=== PATIENT | male | born 1945 | race Caucasian/White ===

== ENCOUNTER 2018-02-05 09:41 | Observation (INO) | payer MEDICARE ==
[2018-02-05] MEDS ORDERED: Albuterol/Ipratropium 3.0-0.5 MG/3 ML Neb Soln INH PRN (10:01)
[2018-02-05] MEDS ORDERED: Morphine 2 MG/ML Syringe IVPUSH PRN (10:01)
[2018-02-05] MEDS ORDERED: Sodium Chloride 0.9% 10 ML Syringe FLUSH PRN (10:01)
[2018-02-05] MEDS ORDERED: Nitroglycerin 0.4 MG Tab.SL SL PRN (12:50)
[2018-02-05] MEDS ORDERED: Digoxin 250 MCG Tab PO SCH (13:00)
[2018-02-05] MEDS: GLIPIZIDE 10 MG PO SCH (15:34)
[2018-02-05] MEDS: Aspirin 81 MG Tab.EC *PTOM PO SCH (15:34)
[2018-02-05] MEDS: Levothyroxine 150 MCG Tab *PTOM PO SCH (15:35)
[2018-02-05] MEDS ORDERED: WARFARIN 5 MG PO SCH (16:00)
[2018-02-05] MEDS: metFORMIN 1,000 MG Tab *PTOM PO SCH (19:14)
[2018-02-05] MEDS ORDERED: atorvaSTATin 20 MG Tab *PTOM PO SCH (21:00)
[2018-02-05] MEDS ORDERED: EZETIMIBE PO SCH (21:00)
[2018-02-05] MEDS ORDERED: SIMVASTATIN PO SCH (21:00)
[2018-02-05] MEDS ORDERED: rOPINIRole 1 MG Tab *PTOM PO SCH (21:00)
--- NOTE | 2018-02-05 21:01 | PCM.HP ---
H&P History of Present Illness - General Date of Service: 02/05/18 Admit Problem/Dx: Admission Diagnosis/Problem Admission Diagnosis/Problem Chest pain Source of Information: Patient - History of Present Illness Initial Comments - Free Text/Narative: 73-year-old male brought in because of chest tightness. He complains of on and of chest tightness for week but this morning had skipping of heartbeat and he saw Annika Gutierrez at the clinic. I discussion with the sales clerk supervisor ensued, was it was decided that the patient should be admitted for observation. The chest tightness described si like "an elephant sitting" on his chest. There is no fever cough no shortness of breath. Has Type 2 diabetes,stable asbestosis, stable and paroxysmal atrial fibrillation on Coumadin that is stable. - Related Data Allergies/Adverse Reactions: Allergies Allergy/AdvReac Type Severity Reaction Status Date / Time latex Allergy Burning Verified 05/05/16 09:01 Home Medications: Home Meds Aspirin [Adult Low Dose Aspirin EC] 81 mg PO DAILY 02/22/15 [History] Digoxin [Lanoxin] 250 mcg PO DAILY 02/22/15 [History] Ezetimibe/Simvastatin [Vytorin 10-20 MG] 1 each PO BEDTIME 02/22/15 [History] FLUoxetine HCl [Prozac] 20 mg PO DAILY 02/22/15 [History] Fenofibrate [Lofibra] 160 mg PO DAILY 02/22/15 [History] Insulin Detemir [Levemir] 45 unit SQ BID 02/22/15 [History] Levothyroxine 150 mcg PO DAILY 02/22/15 [History] metFORMIN [Glucophage] 1,000 mg PO BIDMEALS 02/22/15 [History] Metoprolol Tartrate [Lopressor] 12.5 mg PO DAILY 05/02/16 [History] Nitroglycerin [Nitrostat] 0.4 mg SL ASDIRECTED PRN 05/02/16 [History] Warfarin Sodium [Jantoven] 5 mg PO SUTUWETHSA 05/02/16 [History] atorvaSTATin [Lipitor] 20 mg PO BEDTIME 05/02/16 [History] Lisinopril/Hydrochlorothiazide [Lisinopril-Hctz 20-25 mg Tab] 1 each PO DAILY [History] Warfarin [Coumadin] 7.5 mg PO MOFR 02/05/18 [History] glipiZIDE [Glucotrol] 10 mg PO ACBREAKFAST 02/05/18 [History] rOPINIRole [Requip] 2 mg PO BEDTIME 02/05/18 [History] Past Medical History HEENT History: Reports: Cataract, Other (See Below) Other HEENT History: right eye Cardiovascular History: Reports: Afib, CAD, High Cholesterol, Hypertension Respiratory History: Reports: COPD, Other (See Below) Other Respiratory History: ASBESTIOSIS Other Musculoskeletal History: CARPAL TUNNEL SYNDROME Psychiatric History: Reports: None Endocrine/Metabolic History: Reports: Diabetes, Type II, Hypothyroidism Other Endocrine/Metabolic History: Thyroid surgery Oncologic (Cancer) History: Reports: Thyroid Other Oncologic History: BENIGN PANCREATIC TUMOR - Infectious Disease History Infectious Disease History: Reports: Chicken Pox, Measles, Mumps, Shingles - Past Surgical History HEENT Surgical History: Reports: Other (See Below) Other HEENT Surgeries/Procedures: [place] teeth GI Surgical History: Reports: Colonoscopy Musculoskeletal Surgical History: Reports: None Social & Family History - Family History Family Medical History: Noncontributory - Tobacco Use Smoking Status *Q: Former Smoker Years of Tobacco use: 25 Used Tobacco, but Quit: Yes Month/Year Tobacco Last Used: 1979 Second Hand Smoke Exposure: No - Caffeine Use Caffeine Use: Reports: Coffee, Soda Other Caffeine Use: Coffee 4 cups. soda-6 pack - Alcohol Use Days Per Week of Alcohol Use: 0 - Recreational Drug Use Recreational Drug Use: No H&P Review of Systems - Review of Systems: Review Of Systems: ROS reveals no pertinent complaints other than HPI. Exam - Exam Exam: See Below - Vital Signs Vital Signs: Last Vital Signs Temp 98.0 F 02/05/18 20:00 Pulse 70 02/05/18 20:00 Resp 17 02/05/18 20:00 BP 141/68 H 02/05/18 20:00 Pulse Ox 93 L 02/05/18 20:00 Weight: 106.594 kg - Exam General: Alert, Oriented, 4 HEENT: PERRLA, Hearing Intact, Mucosa Moist & Pump Back, Nares Patent, Normal Nasal Septum, Posterior Pharynx Clear, Conjunctiva Clear, EOMI, EACs Clear, TMs Clear Neck: Supple, Trachea Midline, 2 Lungs: Clear to Auscultation, Normal Respiratory Effort Cardiovascular: Regular Rate, Regular Rhythm GI/Abdominal Exam: Normal Bowel Sounds, Soft, Non-Tender, No Organomegaly, No Distention, No Abnormal Bruit, No Mass, Pelvis Stable (Male) Exam: Deferred Rectal (Males) Exam: Deferred Back Exam: Normal Inspection, Full Range of Motion, NT Extremities: Normal Inspection, Normal Range of Motion, Non-Tender, No Pedal Edema, Normal Capillary Refill Skin: Warm, Dry, Intact Neurological: Cranial Nerves Intact, Reflexes Equal Bilateral Neuro Extensive - Mental Status: Alert, Oriented x3, Normal Mood/Affect, Normal Cognition Neuro Extensive - Motor, Sensory, Reflexes: CN II-XII Intact, Normal Gait, Normal Reflexes Psychiatric: Alert, Normal Affect, Normal Mood - Patient Data Lab Results Last 24 hrs: Laboratory Results - last 24 hr 02/05/18 02/05/18 02/05/18 Range/Units 10:22 17:53 18:00 POC Glucose 171 H 163 H (80-116) mg/dL Troponin I < 0.017 L (<0.017-0.056) ng/mL Result Diagrams: 02/06/18 05:55 02/06/18 05:55 EKG INTERPRETATION EKG Date: 02/05/18 [place]: Normal - Problem List (1) Paroxysmal atrial fibrillation SNOMED Code(s): 221704298 ICD Code: I48.0 - PAROXYSMAL ATRIAL FIBRILLATION Status: Acute Current Visit: Yes (2) Chest tightness SNOMED Code(s): 92262381 ICD Code: R07.89 - OTHER CHEST PAIN Status: Acute Current Visit: Yes (3) Diabetes type 2, controlled SNOMED Code(s): 26136480 ICD Code: E11.9 - TYPE 2 DIABETES MELLITUS WITHOUT COMPLICATIONS Status: Acute Current Visit: Yes (4) HTN (hypertension) SNOMED Code(s): 48994084 ICD Code: I10 - ESSENTIAL (PRIMARY) HYPERTENSION Status: Acute Current Visit: Yes (5) HLD (hyperlipidemia) SNOMED Code(s): 00744557 ICD Code: E78.5 - HYPERLIPIDEMIA, UNSPECIFIED Status: Acute Current Visit : Yes (6) Chronic back pain SNOMED Code(s): 911444390 ICD Code: M54.9 - DORSALGIA, UNSPECIFIED; G89.29 - OTHER CHRONIC PAIN Status: Acute Current Visit: Yes (7) Asbestosis SNOMED Code(s): 32718188 ICD Code: J61 - PNEUMOCONIOSIS DUE TO ASBESTOS AND OTHER MINERAL FIBERS Status: Acute Current Visit: Yes Problem List Initiated/Reviewed/Updated: Yes Orders Last 24hrs: Active Orders 24 hr Category Date Time Status Patient Status [ADT] Routine ADT 02/05/18 10:01 Active Accu Check [Blood Glucose Check, Bedside] [RC] 07,12,17 Care 02/05/18 10:06 Active EKG Documentation Completion [RC] 1800,0511 Care 02/05/18 10:04 Active Height and Weight [RC] 07 Care 02/05/18 10:01 Active Intake and Output [RC] 06,14,22 Care 02/05/18 10:02 Active Oxygen Therapy [RC] PRN Care 02/05/18 10:01 Active RT Aerosol Therapy [RC] ASDIRECTED Care 02/05/18 10:04 Active Up ad Kathy [RC] ASDIRECTED Care 02/05/18 10:01 Active VTE/DVT Education [RC] Per Unit Routine Care 02/05/18 10:01 Active Vital Signs [RC] Q4H Care 02/05/18 10:01 Active Consistent Carbohydrate Diet [DIET] Diet 02/05/18 Breakfast Active CBC WITH AUTO DIFF [HEME] AM Lab 02/06/18 05:11 Ordered COMPREHENSIVE METABOLIC PN,CMP [CHEM] AM Lab 02/06/18 05:11 Ordered TROPONIN I [CHEM] AM Lab 02/06/18 05:11 Ordered Albuterol/Ipratropium [DuoNeb 3.0-0.5 MG/3 ML] Med 02/05/18 10:01 Active 3 ml INH ONETIME PRN Aspirin [Halfprin] Med 02/05/18 14:30 Active 81 mg PO DAILY FLUoxetine [PROzac] Med 02/06/18 09:00 Active 20 mg PO DAILY Hydrochlorothiazide/Lisinopril [Lisinopril-HCTZ 20-25 Med 02/06/18 09:00 Active MG] 1 tab PO DAILY Insulin Detemir [Levemir] Med 02/05/18 21:00 Active 45 unit SQ BID Levothyroxine Med 02/05/18 14:30 Active 150 mcg PO ACBREAKFAST Metoprolol Tartrate [Lopressor] Med 02/06/18 09:00 Pending 12.5 mg PO DAILY Morphine Med 02/05/18 10:01 Active 2 mg IVPUSH Q2H PRN Nitroglycerin [Nitrostat] Med 02/05/18 12:50 Active 0.4 mg SL ASDIRECTED PRN Sodium Chloride 0.9% [Saline Flush] Med 02/05/18 10:01 Active 10 ml FLUSH ASDIRECTED PRN Warfarin [Coumadin] Med 02/06/18 16:00 Active 5 mg PO SuTuWeThSa Warfarin [Coumadin] Med 02/05/18 16:00 Active 7.5 mg PO MoFr@1600 atorvaSTATin [Lipitor] Med 02/05/18 21:00 Active 20 mg PO BEDTIME glipiZIDE [Glucotrol] Med 02/05/18 14:30 Active 10 mg PO WITHBREAKFAST metFORMIN [Glucophage] Med 02/05/18 18:00 Active 1,000 mg PO BIDMEALS rOPINIRole [Requip] Med 02/05/18 21:00 Active 2 mg PO BEDTIME Peripheral IV Insertion Adult [OM.PC] Routine Oth 02/05/18 10:01 Ordered Resuscitation Status Routine Resus Stat 02/05/18 10:01 Ordered EKG 12 Lead [EK] AM Ther 02/06/18 05:11 Ordered EKG 12 Lead [EK] Stat Ther 02/05/18 18:00 Ordered Medication Orders Albuterol/Ipratropium (Duoneb 3.0-0.5 Mg/3 Ml) 3 ml INH ONETIME PRN PRN Reason: Shortness Of Breath/wheezing Aspirin (Halfprin) 81 mg PO DAILY [facility] Last Admin: 02/05/18 15:34 Dose: 81 mg Atorvastatin Calcium (Lipitor) 20 mg PO BEDTIME [facility] Last Admin: 02/05/18 20:44 Dose: 20 mg Fluoxetine HCl (Prozac) 20 mg PO DAILY [facility] Glipizide (Glucotrol) 10 mg PO WITHBREAKFAST [facility] Last Admin: 02/05/18 15:34 Dose: 10 mg Lisinopril/HCTZ (Lisinopril-Hctz 20-25 Mg) 1 tab PO DAILY [facility] Levothyroxine Sodium (Levothyroxine) 150 mcg PO ACBREAKFAST [facility] Last Admin: 02/05/18 15:35 Dose: 150 mcg Metformin HCl (Glucophage) 1,000 mg PO BIDMEALS [facility] Last Admin: 02/05/18 19:14 Dose: 1,000 mg Metoprolol Tartrate (Lopressor) 12.5 mg PO DAILY [facility] Morphine Sulfate (Morphine) 2 mg IVPUSH Q2H PRN PRN Reason: Pain (severe 7-10) Nitroglycerin (Nitrostat) 0.4 mg SL ASDIRECTED PRN PRN Reason: Chest Pain Insulin Detemir [ Levemir] 100 Units/Ml Vial 45 unit SQ BID [facility] Ropinirole HCl (Requip) 2 mg PO BEDTIME [facility] Last Admin: 02/05/18 20:44 Dose: 2 mg Sodium Chloride (Saline Flush) 10 ml FLUSH ASDIRECTED PRN PRN Reason: Keep Vein Open Warfarin Sodium (Coumadin) 7.5 mg PO MoFr@1600 [facility] Last Admin: 02/05/18 15:36 Dose: 5 mg Warfarin Sodium (Coumadin) 5 mg PO SuTuWeThSa [facility] Assessment/Plan Comment:: I reviewed his EKG that was unremarkable, and a chest x-ray that was noncontributory his initial labs including troponin negative. Will observe him overnight repeat troponins 3 discharge him tomorrow symptoms are stable his INR is therapeutic.
[2018-02-05] MEDS: INSULIN DETEMIR 100 UNIT/ML SQ SCH (21:14)
[2018-02-06] MEDS: Levothyroxine 150 MCG Tab *PTOM PO SCH (08:01)
[2018-02-06] MEDS: GLIPIZIDE 10 MG PO SCH (08:02)
[2018-02-06] MEDS: metFORMIN 1,000 MG Tab *PTOM PO SCH (08:02)
[2018-02-06] MEDS: Aspirin 81 MG Tab.EC *PTOM PO SCH (08:04)
[2018-02-06 08:06] VITALS: BP 117/74
--- NOTE | 2018-02-06 08:18 | PCM.PN ---
- General Info Date of Service: 02/06/18 Admission Dx/Problem (Free Text): Admission Diagnosis/Problem Admission Diagnosis/Problem Chest pain Subjective Update: Patient slept well, the tightness of the chest has improved. He does not feel this keeping with hard anymore. His telemetry has been negative for any arrhythmias. - Review of Systems General: Reports: No Symptoms HEENT: Reports: No Symptoms Pulmonary: Reports: No Symptoms Gastrointestinal: Reports: No Symptoms Genitourinary: Reports: No Symptoms - Patient Data Vitals - Most Recent: Last Vital Signs Temp 98.0 F 02/06/18 03:50 Pulse 63 02/06/18 03:50 Resp 17 02/06/18 03:50 BP 117/74 02/06/18 08:04 Pulse Ox 96 02/06/18 03:50 Weight - Most Recent: 106.594 kg I&O - Last 24 Hours: Intake & Output 02/05/18 02/06/18 02/06/18 22:59 06:59 14:59 Intake Total 450 300 Balance 450 300 Lab Results Last 24 Hours: Laboratory Results - last 24 hr 02/05/18 02/05/18 02/05/18 Range/Units 10:22 17:53 18:00 WBC (4.5-12.0) X10-3/uL RBC (4.30-5.75) x10(6)uL Hgb (11.5-15.5) g/dL Hct (30.0-51.3) % MCV (80-96) fL MCH (27.7-33.6) pg MCHC (32.2-35.4) g/dL RDW (11.5-15.5) % Plt Count (125-369) X10(3)uL MPV (7.4-10.4) fL Neut % (Auto) (46-82) % Lymph % (Auto) (13-37) % Pender % (Auto) (4-12) % Eos % (Auto) (1.0-5.0) % Baso % (Auto) (0-2) % Neut # (Auto) (1.6-8.3) # Lymph # (Auto) (0.6-5.0) # Pender # (Auto) (0.0-1.3) # Eos # (Auto) (0.0-0.8) # Baso # (Auto) (0.0-0.2) # Sodium (135-145) mmol/L Potassium (3.5-5.3) mmol/L Chloride (100-110) mmol/L Carbon Dioxide (21-32) mmol/L BUN (7-18) mg/dL Creatinine (0.70-1.30) mg/dL Est Cr Clr Drug Dosing mL/min Estimated GFR (MDRD) (>60) BUN/Creatinine Ratio (9-20) Glucose (80-116) mg/dL POC Glucose 171 H 163 H (80-116) mg/dL Calcium (8.6-10.2) mg/dL Total Bilirubin (0.1-1.3) mg/dL AST (5-25) IU/L ALT (12-36) U/L Alkaline Phosphatase (56-112) IU/L Troponin I < 0.017 L (<0.017-0.056) ng/mL Total Protein (6.0-8.0) g/dL Albumin (3.2-4.6) g/dL Globulin g/dL Albumin/Globulin Ratio 02/06/18 02/06/18 02/06/18 Range/Units 05:55 05:55 05:55 WBC 5.9 (4.5-12.0) X10-3/uL RBC 4.67 (4.30-5.75) x10(6)uL Hgb 13.4 (11.5-15.5) g/dL Hct 41.3 (30.0-51.3) % MCV 88.5 (80-96) fL MCH 28.7 (27.7-33.6) pg MCHC 32.5 (32.2-35.4) g/dL RDW 13.7 (11.5-15.5) % Plt Count 528 H (125-369) X10(3)uL MPV 8.3 (7.4-10.4) fL Neut % (Auto) 54.8 (46-82) % Lymph % (Auto) 22.8 (13-37) % Pender % (Auto) 14.2 H (4-12) % Eos % (Auto) 6 H (1.0-5.0) % Baso % (Auto) 2 (0-2) % Neut # (Auto) 3.3 (1.6-8.3) # Lymph # (Auto) 1.4 (0.6-5.0) # Pender # (Auto) 0.8 (0.0-1.3) # Eos # (Auto) 0.3 (0.0-0.8) # Baso # (Auto) 0.1 (0.0-0.2) # Sodium 138 (135-145) mmol/L Potassium 3.9 (3.5-5.3) mmol/L Chloride 101 (100-110) mmol/L Carbon Dioxide 29 (21-32) mmol/L BUN 16 (7-18) mg/dL Creatinine 1.0 (0.70-1.30) mg/dL Est Cr Clr Drug Dosing 76.49 mL/min Estimated GFR (MDRD) > 60 (>60) BUN/Creatinine Ratio 16.0 (9-20) Glucose 115 (80-116) mg/dL POC Glucose (80-116) mg/dL Calcium 8.8 (8.6-10.2) mg/dL Total Bilirubin 0.5 (0.1-1.3) mg/dL AST 24 (5-25) IU/L ALT 39 H (12-36) U/L Alkaline Phosphatase 58 (56-112) IU/L Troponin I < 0.017 L (<0.017-0.056) ng/mL Total Protein 7.6 (6.0-8.0) g/dL Albumin 3.4 (3.2-4.6) g/dL Globulin 4.2 g/dL Albumin/Globulin Ratio 0.8 Med Orders - Current: Current Medications Albuterol/Ipratropium (Duoneb 3.0-0.5 Mg/3 Ml) 3 ml INH ONETIME PRN PRN Reason: Shortness Of Breath/wheezing Aspirin (Halfprin) 81 mg PO DAILY [facility] Last Admin: 02/06/18 08:04 Dose: 81 mg Atorvastatin Calcium (Lipitor) 20 mg PO BEDTIME [facility] Last Admin: 02/05/18 20:44 Dose: 20 mg Fluoxetine HCl (Prozac) 20 mg PO DAILY [facility] Last Admin: 02/06/18 08:05 Dose: 20 mg Glipizide (Glucotrol) 10 mg PO WITHBREAKFAST [facility] Last Admin: 02/06/18 08:02 Dose: 10 mg Lisinopril/HCTZ (Lisinopril-Hctz 20-25 Mg) 1 tab PO DAILY [facility] Last Admin: 02/06/18 08:04 Dose: 1 tab Levothyroxine Sodium (Levothyroxine) 150 mcg PO ACBREAKFAST [facility] Last Admin: 02/06/18 08:01 Dose: 150 mcg Metformin HCl (Glucophage) 1,000 mg PO BIDMEALS [facility] Last Admin: 02/06/18 08:02 Dose: 1,000 mg Metoprolol Tartrate (Lopressor) 12.5 mg PO DAILY [facility] Morphine Sulfate (Morphine) 2 mg IVPUSH Q2H PRN PRN Reason: Pain (severe 7-10) Nitroglycerin (Nitrostat) 0.4 mg SL ASDIRECTED PRN PRN Reason: Chest Pain Insulin Detemir [ Levemir] 100 Units/Ml VialPt Own 45 unit SQ BID [facility] Last Admin: 02/05/18 21:14 Dose: 45 unit Ropinirole HCl (Requip) 2 mg PO BEDTIME [facility] Last Admin: 02/05/18 20:44 Dose: 2 mg Sodium Chloride (Saline Flush) 10 ml FLUSH ASDIRECTED PRN PRN Reason: Keep Vein Open Warfarin Sodium (Coumadin) 7.5 mg PO MoFr@1600 [facility] Last Admin: 02/05/18 15:36 Dose: 5 mg Warfarin Sodium (Coumadin) 5 mg PO SuTuWeThSa [facility] - Exam General: Alert, Oriented HEENT: Pupils Equal Neck: Supple Lungs: Clear to Auscultation Cardiovascular: Regular Rate - Problem List & Annotations (1) Paroxysmal atrial fibrillation SNOMED Code(s): 726616730 Code(s): I48.0 - PAROXYSMAL ATRIAL FIBRILLATION Status: Acute Current Visit: Yes (2) Chest tightness SNOMED Code(s): 39433378 Code(s): R07.89 - OTHER CHEST PAIN Status: Acute Current Visit: Yes (3) Diabetes type 2, controlled SNOMED Code(s): 08510449 Code(s): E11.9 - TYPE 2 DIABETES MELLITUS WITHOUT COMPLICATIONS Status: Acute Current Visit: Yes (4) HTN (hypertension) SNOMED Code(s): 96597260 Code(s): I10 - ESSENTIAL (PRIMARY) HYPERTENSION Status: Acute Current Visit: Yes (5) HLD (hyperlipidemia) SNOMED Code(s): 82968818 Code(s): E78.5 - HYPERLIPIDEMIA, UNSPECIFIED Status: Acute Current Visit : Yes (6) Chronic back pain SNOMED Code(s): 171592642 Code(s): M54.9 - DORSALGIA, UNSPECIFIED; G89.29 - OTHER CHRONIC PAIN Status : Acute Current Visit: Yes (7) Asbestosis SNOMED Code(s): 73446081 Code(s): J61 - PNEUMOCONIOSIS DUE TO ASBESTOS AND OTHER MINERAL FIBERS Status: Acute Current Visit: Yes - Problem List Review Problem List Initiated/Reviewed/Updated: Yes - My Orders Last 24 Hours: My Active Orders 02/05/18 10:01 Patient Status [ADT] Routine Height and Weight [RC] 07 Oxygen Therapy [RC] PRN Up ad Kathy [RC] ASDIRECTED VTE/DVT Education [RC] Per Unit Routine Vital Signs [RC] Q4H Albuterol/Ipratropium [DuoNeb 3.0-0.5 MG/3 ML] 3 ml INH ONETIME PRN Morphine 2 mg IVPUSH Q2H PRN Sodium Chloride 0.9% [Saline Flush] 10 ml FLUSH ASDIRECTED PRN Peripheral IV Insertion Adult [OM.PC] Routine Resuscitation Status Routine 02/05/18 10:02 Intake and Output [RC] 06,14,22 02/05/18 10:04 RT Aerosol Therapy [RC] ASDIRECTED 02/05/18 10:06 Accu Check [Blood Glucose Check, Bedside] [RC] 07,12,17 02/05/18 12:50 Nitroglycerin [Nitrostat] 0.4 mg SL ASDIRECTED PRN 02/05/18 14:30 Aspirin [Halfprin] 81 mg PO DAILY Levothyroxine 150 mcg PO ACBREAKFAST glipiZIDE [Glucotrol] 10 mg PO WITHBREAKFAST 02/05/18 16:00 Warfarin [Coumadin] 7.5 mg PO MoFr@1600 02/05/18 18:00 metFORMIN [Glucophage] 1,000 mg PO BIDMEALS EKG 12 Lead [EK] Stat 02/05/18 21:00 Insulin Detemir [Levemir] 45 unit SQ BID atorvaSTATin [Lipitor] 20 mg PO BEDTIME rOPINIRole [Requip] 2 mg PO BEDTIME 02/06/18 05:11 EKG 12 Lead [EK] AM 02/06/18 09:00 FLUoxetine [PROzac] 20 mg PO DAILY Hydrochlorothiazide/Lisinopril [Lisinopril-HCTZ 20-25 MG] 1 tab PO DAILY Metoprolol Tartrate [Lopressor] 12.5 mg PO DAILY 02/06/18 16:00 Warfarin [Coumadin] 5 mg PO SuTuWeThSa - Plan Plan:: His EKG is negative, and troponin is negative 3. I will discharge him home on his regular medication with a follow-up appointment next month with me. I advised him to come to the emergency room or to the clinic if symptoms get worse. I feel that his symptoms are probably due to paroxysmal atrial fibrillation and perhaps underlying anxiety.
[2018-02-06] MEDS ORDERED: Metoprolol Tartrate 25 MG Tab PO SCH (09:00)
[2018-02-06] MEDS ORDERED: Fenofibrate 160 MG Tab PO SCH (09:00)
[2018-02-06] MEDS ORDERED: HYDROCHLOROTHIAZIDE PO SCH (09:00)
[2018-02-06] MEDS ORDERED: FLUoxetine 20 MG Cap *PTOM PO SCH (09:00)
[2018-02-06] MEDS ORDERED: LISINOPRIL PO SCH (09:00)
[2018-02-06] MEDS: INSULIN DETEMIR 100 UNIT/ML SQ SCH (09:16)
[2018-02-06] MEDS ORDERED: WARFARIN 5 MG PO SCH (16:00)
== END 2018-02-06 10:25 | disposition home or self-care (01) ==
LOC: FB.ICU 09:41
PROVIDERS: ADMIT Family Medicine; ATTEND Family Medicine
DX: R07.89 Other chest pain (principal); I48.0 Paroxysmal atrial fibrillation; I25.10 Atherosclerotic heart disease of native coronary artery without angina pectoris; E78.00 Pure hypercholesterolemia, unspecified; I10 Essential (primary) hypertension; J44.9 Chronic obstructive pulmonary disease, unspecified; E11.9 Type 2 diabetes mellitus without complications; E03.9 Hypothyroidism, unspecified; J61 Pneumoconiosis due to asbestos and other mineral fibers; Z87.891 Personal history of nicotine dependence; Z91.040 Latex allergy status; Z79.82 Long term (current) use of aspirin; Z79.899 Other long term (current) drug therapy; Z79.4 Long term (current) use of insulin; Z79.01 Long term (current) use of anticoagulants
CPT/HCPCS: 36415; 80053; 82962; 84484; 85025; 93005; A9270; 93010; 99217; 99219; G0378; G0379

== ENCOUNTER 2020-02-20 15:55 | Observation (INO) | payer MEDICARE ==
[2020-02-20] MEDS ORDERED: Sodium Chloride 0.9% 10 ML Syringe FLUSH PRN (16:12)
[2020-02-20] MEDS ORDERED: Diltiazem 25 MG/5 ML SDV IVPUSH ONE ×2 (16:29→16:35)
--- NOTE | 2020-02-20 16:38 | EDM.PDOC ---
ED HPI GENERAL MEDICAL PROBLEM - General Chief Complaint: Cardiovascular Problem Stated Complaint: DIZZINESS,HEADACHE,SOB Time Seen by Provider: 02/20/20 16:35 Source of Information: Reports: Patient History Limitations: Reports: No Limitations - History of Present Illness INITIAL COMMENTS - FREE TEXT/NARRATIVE: 75 yo male who was feeling dizzy this after noon while working on lawn mowers., He felt dizzy and his heart rate was high. He has a h/o HTN,Afib, Hypothyroidism ,asbestosis,and DM2. He does not endorse any fever,chills,SOB or chest pain. - Related Data Allergies Allergy/AdvReac Type Severity Reaction Status Date / Time latex Allergy Burning Verified 05/05/16 09:01 Home Meds: Home Meds Aspirin [Adult Low Dose Aspirin EC] 81 mg PO DAILY 02/22/15 [History] FLUoxetine HCl [Prozac] 20 mg PO DAILY 02/22/15 [History] Insulin Detemir [Levemir] 45 unit SQ BID 02/22/15 [History] Levothyroxine 150 mcg PO DAILY 02/22/15 [History] metFORMIN [Glucophage] 1,000 mg PO BIDMEALS 02/22/15 [History] Nitroglycerin [Nitrostat] 0.4 mg SL ASDIRECTED PRN 05/02/16 [History] Warfarin Sodium [Jantoven] 5 mg PO SUTUWETHSA 05/02/16 [History] atorvaSTATin [Lipitor] 20 mg PO BEDTIME 05/02/16 [History] Lisinopril/Hydrochlorothiazide [Lisinopril-Hctz 20-25 mg Tab] 1 each PO DAILY [History] Warfarin [Coumadin] 7.5 mg PO MOFR 02/05/18 [History] glipiZIDE [Glucotrol] 10 mg PO ACBREAKFAST 02/05/18 [History] rOPINIRole [Requip] 2 mg PO BEDTIME 02/05/18 [History] Past Medical History HEENT History: Reports: Cataract, Other (See Below) Other HEENT History: right eye Cardiovascular History: Reports: Afib, CAD, High Cholesterol, Hypertension Respiratory History: Reports: COPD, Other (See Below) Other Respiratory History: ASBESTIOSIS Other Musculoskeletal History: CARPAL TUNNEL SYNDROME Psychiatric History: Reports: None Endocrine/Metabolic History: Reports: Diabetes, Type II, Hypothyroidism Other Endocrine/Metabolic History: Thyroid surgery Oncologic (Cancer) History: Reports: Thyroid Other Oncologic History: BENIGN PANCREATIC TUMOR - Infectious Disease History Infectious Disease History: Reports: Chicken Pox, Measles, Mumps, Shingles - Past Surgical History HEENT Surgical History: Reports: Other (See Below) Other HEENT Surgeries/Procedures: [place] teeth GI Surgical History: Reports: Colonoscopy Musculoskeletal Surgical History: Reports: None Social & Family History - Family History Family Medical History: Noncontributory - Caffeine Use Caffeine Use: Reports: Coffee, Soda Other Caffeine Use: Coffee 4 cups. soda-6 pack ED ROS GENERAL - Review of Systems Review Of Systems: Comprehensive ROS is negative, except as noted in HPI. ED EXAM, GENERAL - Physical Exam Exam: See Below Exam Limited By: No Limitations General Appearance: Alert, WD/WN, No Apparent Distress Ears: Normal External Exam Nose: Normal Inspection Throat/Mouth: Normal Inspection Head: Atraumatic Neck: Normal Inspection Respiratory/Chest: No Respiratory Distress Cardiovascular: No JVD, Tachycardia, Irregularly Irregular. No: Regular Rate, Rhythm, Diastolic Murmur Extremities: Normal Inspection Neurological: Alert, Oriented Psychiatric: Normal Affect Skin Exam: Warm, Cool EKG INTERPRETATION Rhythm: A-Fib Course - Orders/Labs/Meds Orders: Active Orders 24 hr Category Date Time Status Patient Status [ADT] Routine ADT 02/20/20 17:19 Ordered Bedrest Bathroom Privileges [RC] ASDIRECTED Care 02/20/20 17:18 Ordered Blood Glucose Check, Bedside [RC] TIDMEALS Care 02/20/20 17:18 Ordered EKG Documentation Completion [RC] ASDIRECTED Care 02/20/20 16:12 Active EKG Documentation Completion [RC] ASDIRECTED Care 02/20/20 16:12 Active Oxygen Therapy [RC] PRN Care 02/20/20 17:19 Ordered VTE/DVT Education [RC] Per Unit Routine Care 02/20/20 17:19 Ordered Vital Signs [RC] Q8H Care 02/20/20 17:18 Ordered Consistent Carbohydrate Diet [DIET] Diet 02/20/20 Breakfast Ordered Chest 1V Frontal [CR] Stat Exams 02/20/20 16:12 Taken BASIC METABOLIC PANEL,BMP [CHEM] AM Lab 02/21/20 05:11 Ordered CBC W/O DIFF,HEMOGRAM [HEME] AM Lab 02/21/20 05:11 Ordered CBC WITH AUTO DIFF [HEME] Stat Lab 02/20/20 16:22 Results Insulin Lispro [HumaLOG] Med 02/20/20 18:00 Ordered See Protocol SUBCUT TIDMEALS Sodium Chloride 0.9% [Saline Flush] Med 02/20/20 16:12 Active 10 ml FLUSH ASDIRECTED PRN Peripheral IV Insertion Adult [OM.PC] Routine Oth 02/20/20 16:12 Ordered Resuscitation Status Routine Resus Stat 02/20/20 17:18 Ordered EKG 12 Lead [EK] Routine Ther 02/20/20 16:12 Ordered Medication Orders Insulin Human Lispro (Humalog) 0 unit SUBCUT TIDMEALS CHELA; Protocol Sodium Chloride (Saline Flush) 10 ml FLUSH ASDIRECTED PRN PRN Reason: Keep Vein Open Labs: Laboratory Tests 02/20/20 02/20/20 02/20/20 Range/Units 16:22 16:22 16:22 WBC 52.8 H* (4.5-12.0) X10-3/uL RBC 4.53 (4.30-5.75) x10(6)uL Hgb 13.2 L (13.5-17.8) g/dL Hct 39.3 (30.0-51.3) % MCV 86.8 (80-96) fL MCH 29.2 (27.7-33.6) pg MCHC 33.6 (32.2-35.4) g/dL RDW 14.4 (11.5-15.5) % Plt Count 421 H (125-369) X10(3)uL MPV 8.2 (7.4-10.4) fL Add Manual Diff Yes PT 20.7 H (9.0-11.1) sec INR 2.01 H (1.00-1.24) Sodium 133 L (135-145) mmol/L Potassium 3.8 (3.5-5.3) mmol/L Chloride 97 L (100-110) mmol/L Carbon Dioxide 28 (21-32) mmol/L BUN 18 (7-18) mg/dL Creatinine 1.3 (0.70-1.30) mg/dL Est Cr Clr Drug Dosing TNP Estimated GFR (MDRD) 54 L (>60) BUN/Creatinine Ratio 13.8 (9-20) Glucose 151 H (80-116) mg/dL Hemoglobin A1c (<5.7) % Calcium 9.2 (8.6-10.2) mg/dL Troponin I (4.0-60.3) pg/mL NT-Pro-B Natriuret Pep (<=450) pg/mL TSH, Ultra Sensitive (0.36-3.74) IU/mL 02/20/20 02/20/20 02/20/20 Range/Units 16:22 16:22 16:22 WBC (4.5-12.0) X10-3/uL RBC (4.30-5.75) x10(6)uL Hgb (13.5-17.8) g/dL Hct (30.0-51.3) % MCV (80-96) fL MCH (27.7-33.6) pg MCHC (32.2-35.4) g/dL RDW (11.5-15.5) % Plt Count (125-369) X10(3)uL MPV (7.4-10.4) fL Add Manual Diff PT (9.0-11.1) sec INR (1.00-1.24) Sodium (135-145) mmol/L Potassium (3.5-5.3) mmol/L Chloride (100-110) mmol/L Carbon Dioxide (21-32) mmol/L BUN (7-18) mg/dL Creatinine (0.70-1.30) mg/dL Est Cr Clr Drug Dosing Estimated GFR (MDRD) (>60) BUN/Creatinine Ratio (9-20) Glucose (80-116) mg/dL Hemoglobin A1c 8.4 H (<5.7) % Calcium (8.6-10.2) mg/dL Troponin I 9.7 (4.0-60.3) pg/mL NT-Pro-B Natriuret Pep 260 (<=450) pg/mL TSH, Ultra Sensitive 17.16 H* (0.36-3.74) IU/mL Meds: Medications Generic Name Dose Route Start Last Admin Trade Name Freq PRN Reason Stop Dose Admin Insulin Human Lispro 0 unit 02/20/20 18:00 Humalog SUBCUT TIDMEALS CHELA Protocol Sodium Chloride 10 ml 02/20/20 16:12 Saline Flush FLUSH ASDIRECTED PRN Keep Vein Open Discontinued Medications Generic Name Dose Route Start Last Admin Trade Name Severo PRN Reason Stop Dose Admin Digoxin 250 mcg 02/20/20 17:18 Lanoxin IVPUSH 02/20/20 17:19 ONETIME ONE Diltiazem HCl 20 mg 02/20/20 16:29 Diltiazem IVPUSH 02/20/20 16:30 ONETIME ONE Diltiazem HCl 10 mg 02/20/20 16:35 02/20/20 16:28 Diltiazem IVPUSH 02/20/20 16:36 10 mg ONETIME ONE Administration Departure - Departure Time of Disposition: 17:22 Disposition: Refer to Observation Condition: Good Clinical Impression: Paroxysmal atrial fibrillation, Diabetes type 2, controlled Referrals: Ervin Dixon MD [Primary Care Provider] - Forms: ED Department Discharge Sepsis Event Note - Focused Exam Date Exam was Performed: 02/20/20 Time Exam was Performed: 17:21 - Problem List & Annotations (1) Paroxysmal atrial fibrillation SNOMED Code(s): 037924938 Code(s): I48.0 - PAROXYSMAL ATRIAL FIBRILLATION Status: Acute Current Visit: No (2) Hypothyroidism SNOMED Code(s): 18243021 Code(s): E03.9 - HYPOTHYROIDISM, UNSPECIFIED Status: Acute Current Visit : Yes (3) Leukocytosis SNOMED Code(s): 357422915, 951547546 Code(s): D72.829 - ELEVATED WHITE BLOOD CELL COUNT, UNSPECIFIED Status: Acute Current Visit: Yes (4) Diabetes type 2, controlled SNOMED Code(s): 80351678, 906309550 Code(s): E11.9 - TYPE 2 DIABETES MELLITUS WITHOUT COMPLICATIONS Status: Acute Current Visit: Yes (5) HTN (hypertension) SNOMED Code(s): 57972642 Code(s): I10 - ESSENTIAL (PRIMARY) HYPERTENSION Status: Acute Current Visit: No (6) Asbestosis SNOMED Code(s): 18142800 Code(s): J61 - PNEUMOCONIOSIS DUE TO ASBESTOS AND OTHER MINERAL FIBERS Status: Acute Current Visit: No - Problem List Review Problem List Initiated/Reviewed/Updated: Yes - My Orders Last 24 Hours: My Active Orders 02/20/20 16:12 EKG Documentation Completion [RC] ASDIRECTED EKG Documentation Completion [RC] ASDIRECTED Chest 1V Frontal [CR] Stat Sodium Chloride 0.9% [Saline Flush] 10 ml FLUSH ASDIRECTED PRN Peripheral IV Insertion Adult [OM.PC] Routine EKG 12 Lead [EK] Routine 02/20/20 16:22 CBC WITH AUTO DIFF [HEME] Stat 02/20/20 17:18 Bedrest Bathroom Privileges [RC] ASDIRECTED Blood Glucose Check, Bedside [RC] TIDMEALS Vital Signs [RC] Q8H Resuscitation Status Routine 02/20/20 17:19 Patient Status [ADT] Routine Oxygen Therapy [RC] PRN VTE/DVT Education [RC] Per Unit Routine 02/20/20 18:00 Insulin Lispro [HumaLOG] See Protocol SUBCUT TIDMEALS 02/20/20 Breakfast Consistent Carbohydrate Diet [DIET] 02/21/20 05:11 BASIC METABOLIC PANEL,BMP [CHEM] AM CBC W/O DIFF,HEMOGRAM [HEME] AM - Assessment/Plan Last 24 Hours: My Active Orders 02/20/20 16:12 EKG Documentation Completion [RC] ASDIRECTED EKG Documentation Completion [RC] ASDIRECTED Chest 1V Frontal [CR] Stat Sodium Chloride 0.9% [Saline Flush] 10 ml FLUSH ASDIRECTED PRN Peripheral IV Insertion Adult [OM.PC] Routine EKG 12 Lead [EK] Routine 02/20/20 16:22 CBC WITH AUTO DIFF [HEME] Stat 02/20/20 17:18 Bedrest Bathroom Privileges [RC] ASDIRECTED Blood Glucose Check, Bedside [RC] TIDMEALS Vital Signs [RC] Q8H Resuscitation Status Routine 02/20/20 17:19 Patient Status [ADT] Routine Oxygen Therapy [RC] PRN VTE/DVT Education [RC] Per Unit Routine 02/20/20 18:00 Insulin Lispro [HumaLOG] See Protocol SUBCUT TIDMEALS 02/20/20 Breakfast Consistent Carbohydrate Diet [DIET] 02/21/20 05:11 BASIC METABOLIC PANEL,BMP [CHEM] AM CBC W/O DIFF,HEMOGRAM [HEME] AM Plan: I tried Cardizem 10 mg IV. He is still in afib,and his BP is borderline low. I will admit him to ICU ,and consider Digoxin. Repeat labs.
[2020-02-20 16:47] LABS: HEMOGLOBIN A1C 8.4 % (<5.7)
[2020-02-20] MEDS ORDERED: Digoxin 500 MCG/2 ML Amp IVPUSH ONE (17:18)
[2020-02-20] MEDS ORDERED: Nitroglycerin 0.4 MG Tab.SL SL PRN (17:29)
[2020-02-20] MEDS ORDERED: Diltiazem 125 MG in Sodium Chloride 0.9% 100 ML IV SCH (17:30)
[2020-02-20] MEDS ORDERED: Metoprolol Tartrate 5 MG in Sodium Chloride 0.9% 50 ML IV ONE (17:55)
[2020-02-20] MEDS ORDERED: Metoprolol Tartrate 5 MG/5 ML SDV IVPUSH ONE ×2 (18:15→18:26)
[2020-02-20] MEDS ORDERED: Sodium Chloride 0.9% 500 ML IV ONE (18:27)
[2020-02-20] MEDS ORDERED: Sodium Chloride 0.9% 1,000 ML IV ONE (18:36)
--- NOTE | 2020-02-20 18:49 | PCM.HP.2 ---
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 He felt dizzy and his heart rate was high. He denies shortness of breath, chest pain. He fell last week, tripped over some things on the floor of his shop. Some abrasions from this. He denies any fevers, sinus symptoms, cough, abdominal pain. He had diarrhea this morning. No constipation, dysuria or frequency. Denies night sweats but has been more fatigued lately. He has a h/o HTN, Afib, Hypothyroidism, asbestosis, and DM2, on insulin. - Related Data Allergies/Adverse Reactions: Allergies Allergy/AdvReac Type Severity Reaction Status Date / Time latex Allergy Burning Verified 05/05/16 09:01 Home Medications: Home Meds Aspirin [Adult Low Dose Aspirin EC] 81 mg PO DAILY 02/22/15 [History] FLUoxetine HCl [Prozac] 20 mg PO DAILY 02/22/15 [History] Insulin Detemir [Levemir] 60 unit SQ BEDTIME 02/22/15 [History] Levothyroxine 150 mcg PO DAILY 02/22/15 [History] metFORMIN [Glucophage] 1,000 mg PO BIDMEALS 02/22/15 [History] Nitroglycerin [Nitrostat] 0.4 mg SL ASDIRECTED PRN 05/02/16 [History] Warfarin Sodium [Jantoven] 5 mg PO SUTUWETHSA 05/02/16 [History] atorvaSTATin [Lipitor] 20 mg PO BEDTIME 05/02/16 [History] Lisinopril/Hydrochlorothiazide [Lisinopril-Hctz 20-25 mg Tab] 1 each PO DAILY [History] Warfarin [Coumadin] 7.5 mg PO MOFR 02/05/18 [History] glipiZIDE [Glucotrol] 10 mg PO ACBREAKFAST 02/05/18 [History] rOPINIRole [Requip] 2 mg PO BEDTIME 02/05/18 [History] Past Medical History HEENT History: Reports: Cataract, Other (See Below) Other HEENT History: right eye Cardiovascular History: Reports: Afib, CAD, High Cholesterol, Hypertension Respiratory History: Reports: COPD, Other (See Below) Other Respiratory History: ASBESTIOSIS Other Musculoskeletal History: CARPAL TUNNEL SYNDROME Psychiatric History: Reports: None Endocrine/Metabolic History: Reports: Diabetes, Type II, Hypothyroidism Other Endocrine/Metabolic History: Thyroid surgery Oncologic (Cancer) History: Reports: Thyroid Other Oncologic History: BENIGN PANCREATIC TUMOR - Infectious Disease History Infectious Disease History: Reports: Chicken Pox, Measles, Mumps, Shingles - Past Surgical History HEENT Surgical History: Reports: Other (See Below) Other HEENT Surgeries/Procedures: [place] teeth GI Surgical History: Reports: Colonoscopy Musculoskeletal Surgical History: Reports: None Social & Family History - Family History Family Medical History: Noncontributory - Caffeine Use Caffeine Use: Reports: Coffee, Soda Other Caffeine Use: Coffee 4 cups. soda-6 pack H&P Review of Systems - Review of Systems: Review Of Systems: Comprehensive ROS is negative, except as noted in HPI. Exam - Exam Exam: See Below - Vital Signs Vital Signs: Last Vital Signs Temp Pulse 119 H 02/20/20 18:35 Resp BP 100/62 02/20/20 18:35 Pulse Ox - Exam General: Alert, Oriented, Cooperative. No: Mild Distress HEENT: PERRLA, Conjunctiva Clear, EOMI, Hearing Intact, Mucosa Moist & Zearing, Normal Nasal Septum, Posterior Pharynx Clear, TMs Clear, Glasses Neck: Supple, Trachea Midline Lungs: Clear to Auscultation, Normal Respiratory Effort, Decreased Breath Sounds (bibasilar). No: Crackles, Wheezing Cardiovascular: Tachycardia GI/Abdominal Exam: Normal Bowel Sounds, Soft, Non-Tender, No Distention (Male) Exam: Deferred Rectal (Males) Exam: Deferred Extremities: No Pedal Edema Peripheral Pulses: 2+: Radial (L), Radial (R) Skin: Warm, Dry, Other (abrasions) Psychiatric: Normal Affect, Normal Mood - Patient Data Lab Results Last 24 hrs: Laboratory Results - last 24 hr 02/20/20 02/20/20 02/20/20 Range/Units 16:22 16:22 16:22 WBC 52.8 H* (4.5-12.0) X10-3/uL RBC 4.53 (4.30-5.75) x10(6)uL Hgb 13.2 L (13.5-17.8) g/dL Hct 39.3 (30.0-51.3) % MCV 86.8 (80-96) fL MCH 29.2 (27.7-33.6) pg MCHC 33.6 (32.2-35.4) g/dL RDW 14.4 (11.5-15.5) % Plt Count 421 H (125-369) X10(3)uL MPV 8.2 (7.4-10.4) fL Add Manual Diff Yes PT 20.7 H (9.0-11.1) sec INR 2.01 H (1.00-1.24) Sodium 133 L (135-145) mmol/L Potassium 3.8 (3.5-5.3) mmol/L Chloride 97 L (100-110) mmol/L Carbon Dioxide 28 (21-32) mmol/L BUN 18 (7-18) mg/dL Creatinine 1.3 (0.70-1.30) mg/dL Est Cr Clr Drug Dosing TNP Estimated GFR (MDRD) 54 L (>60) BUN/Creatinine Ratio 13.8 (9-20) Glucose 151 H (80-116) mg/dL Hemoglobin A1c (<5.7) % Calcium 9.2 (8.6-10.2) mg/dL Troponin I (4.0-60.3) pg/mL NT-Pro-B Natriuret Pep (<=450) pg/mL TSH, Ultra Sensitive (0.36-3.74) IU/mL 02/20/20 02/20/20 02/20/20 Range/Units 16:22 16:22 16:22 WBC (4.5-12.0) X10-3/uL RBC (4.30-5.75) x10(6)uL Hgb (13.5-17.8) g/dL Hct (30.0-51.3) % MCV (80-96) fL MCH (27.7-33.6) pg MCHC (32.2-35.4) g/dL RDW (11.5-15.5) % Plt Count (125-369) X10(3)uL MPV (7.4-10.4) fL Add Manual Diff PT (9.0-11.1) sec INR (1.00-1.24) Sodium (135-145) mmol/L Potassium (3.5-5.3) mmol/L Chloride (100-110) mmol/L Carbon Dioxide (21-32) mmol/L BUN (7-18) mg/dL Creatinine (0.70-1.30) mg/dL Est Cr Clr Drug Dosing Estimated GFR (MDRD) (>60) BUN/Creatinine Ratio (9-20) Glucose (80-116) mg/dL Hemoglobin A1c 8.4 H (<5.7) % Calcium (8.6-10.2) mg/dL Troponin I 9.7 (4.0-60.3) pg/mL NT-Pro-B Natriuret Pep 260 (<=450) pg/mL TSH, Ultra Sensitive 17.16 H* (0.36-3.74) IU/mL Result Diagrams: 02/20/20 16:22 02/20/20 16:22 EKG INTERPRETATION EKG Date: 02/20/20 Time: 16:15 Rhythm: A-Fib Rate (Beats/Min): 158 [place]: Normal P-Wave: Absent ST-T: Depressed (lateral leads V5, V6) Comparison: NA - No Prior EKG EKG Interpretation Comments: Atrial fibrillation with RVR Sepsis Event Note - Focused Exam Vital Signs: Vital Signs Pulse BP 02/20/20 18:35 119 H 100/62 02/20/20 18:08 157 H 100/66 02/20/20 17:32 148 H Date Exam was Performed: 02/20/20 Time Exam was Performed: 18:38 - Problem List (1) Paroxysmal atrial fibrillation SNOMED Code(s): 922880423 ICD Code: I48.0 - PAROXYSMAL ATRIAL FIBRILLATION Status: Acute Current Visit: Yes Problem Details: with rapid ventricular rate (2) Leukocytosis SNOMED Code(s): 437185866, 261535221 ICD Code: D72.829 - ELEVATED WHITE BLOOD CELL COUNT, UNSPECIFIED Status: Acute Current Visit: Yes (3) Diabetes type 2, controlled SNOMED Code(s): 77688367, 917998737 ICD Code: E11.9 - TYPE 2 DIABETES MELLITUS WITHOUT COMPLICATIONS Status: Chronic Current Visit: Yes Qualifiers: Diabetes mellitus detention insulin use: with terminal computer operator use (4) Hypothyroidism SNOMED Code(s): 05660652 ICD Code: E03.9 - HYPOTHYROIDISM, UNSPECIFIED Status: Chronic Current Visit: Yes (5) HLD (hyperlipidemia) SNOMED Code(s): 55979301 ICD Code: E78.5 - HYPERLIPIDEMIA, UNSPECIFIED Status: Acute Current Visit : No (6) HTN (hypertension) SNOMED Code(s): 68366192 ICD Code: I10 - ESSENTIAL (PRIMARY) HYPERTENSION Status: Acute Current Visit: No Problem List Initiated/Reviewed/Updated: Yes Orders Last 24hrs: Active Orders 24 hr Category Date Time Status Patient Status [ADT] Routine ADT 02/20/20 17:19 Active Bedrest Bathroom Privileges [RC] ASDIRECTED Care 02/20/20 17:18 Active Blood Glucose Check, Bedside [RC] TIDMEALS Care 02/20/20 17:18 Active Cardiac Monitoring [RC] .As Directed Care 02/20/20 17:29 Active EKG Documentation Completion [RC] ASDIRECTED Care 02/20/20 16:12 Active EKG Documentation Completion [RC] ASDIRECTED Care 02/20/20 16:12 Active Oxygen Therapy [RC] PRN Care 02/20/20 17:19 Active VTE/DVT Education [RC] Per Unit Routine Care 02/20/20 17:19 Active Vital Signs [RC] Q8H Care 02/20/20 17:18 Active Consistent Carbohydrate Diet [DIET] Diet 02/20/20 Breakfast Ordered Chest 1V Frontal [CR] Stat Exams 02/20/20 16:12 Taken BASIC METABOLIC PANEL,BMP [CHEM] AM Lab 02/21/20 05:11 Ordered CBC W/O DIFF,HEMOGRAM [HEME] AM Lab 02/21/20 05:11 Ordered CBC WITH AUTO DIFF [HEME] Stat Lab 02/20/20 16:22 Results INR,PT,PROTHROMBIN TIME [COAG] Routine Lab 02/21/20 06:00 Ordered LACTIC ACID [CHEM] Routine Lab 02/20/20 18:22 Ordered PERIPH BLOOD SMEAR PATHOLOGIST [HEME] Routine Lab 02/21/20 06:00 Ordered UA W/MICROSCOPIC [URIN] Routine Lab 02/20/20 18:23 Ordered Diltiazem 125 mg Med 02/20/20 17:30 Hold Sodium Chloride 0.9% [Normal Saline] 100 ml IV TITRATE Insulin Detemir [Levemir] Med 02/20/20 21:00 Pending 60 unit SQ BEDTIME Insulin Lispro [HumaLOG] Med 02/20/20 18:00 Active See Protocol SUBCUT TIDMEALS Levothyroxine Med 02/21/20 09:00 Pending 150 mcg PO DAILY Nitroglycerin [Nitrostat] Med 02/20/20 17:29 Pending 0.4 mg SL ASDIRECTED PRN Sodium Chloride 0.9% [Normal Saline] 1,000 ml Med 02/20/20 18:36 Ordered IV .BOLUS Sodium Chloride 0.9% [Normal Saline] 500 ml Med 02/20/20 18:27 Active IV .BOLUS Sodium Chloride 0.9% [Saline Flush] Med 02/20/20 16:12 Active 10 ml FLUSH ASDIRECTED PRN Warfarin [Coumadin] Med 02/20/20 20:00 Pending 5 mg PO SUTUWETHSA Warfarin [Coumadin] Med 02/24/20 20:00 Pending 7.5 mg PO MOFR rOPINIRole [Requip] Med 02/20/20 21:00 Pending 2 mg PO BEDTIME Peripheral IV Insertion Adult [OM.PC] Routine Oth 02/20/20 16:12 Ordered Resuscitation Status Routine Resus Stat 02/20/20 17:18 Ordered EKG 12 Lead [EK] Routine Ther 02/20/20 16:12 Ordered Medication Orders Sodium Chloride (Normal Saline) 1,000 mls @ 999 mls/hr IV .BOLUS ONE Stop: 02/20/20 19:36 Insulin Human Lispro (Humalog) 0 unit SUBCUT TIDMEALS [facility]; Protocol Levothyroxine Sodium (Levothyroxine) 175 mcg PO DAILY CHELA Nitroglycerin (Nitrostat) 0.4 mg SL ASDIRECTED PRN PRN Reason: Chest Pain Non-Formulary Medication (Insulin Detemir [Levemir]) 60 unit SQ BEDTIME CHELA Ropinirole HCl (Requip) 2 mg PO BEDTIME CHELA Sodium Chloride (Saline Flush) 10 ml FLUSH ASDIRECTED PRN PRN Reason: Keep Vein Open Last Admin: 02/20/20 18:27 Dose: 10 ml Warfarin Sodium (Coumadin) 7.5 mg PO MOFR CHELA Warfarin Sodium (Coumadin) 5 mg PO SUTUWETHSA [facility] Assessment/Plan Comment:: 1. Admit to ICU observation for Atrial fibrillation with rapid ventricular rate , Leukocytosis. 2. Initially received Diltiazem 10 mg bolus, dropped his blood pressure, then Digoxin 0.125 mg bolus heart rate came down a little bit but then back up to 150. His rate did not respond to Diltiazem so Diltiazem drip was held. Metoprolol 5 mg IV given x 2 doses greater than 5 min apart. Heart rate came down after second dose to 87, repeat EKG done. NS 500 ml bolus given and patient in Trendelenburg while giving Metoprolol, will start 12.5 mg bid. 3. Leukocytosis, concern for leukemia. Peripheral smear ordered for am. Blasts seen on manual differential. Lactic acid pending. UA pending. 4. TSH 17, increase Levothyroxine 175 mcg. 5. Consistent carb diet, Accuchecks. Levemir 60 units sq at bedtime. 6. Continue home medications. 7. Warfarin at bedtime, last dose Thursday. INR at goal. 8. FULL CODE. - Mortality Measure Prognosis:: Good
[2020-02-20] MEDS: Insulin Lispro 100 Unit/ML 3 ML KwikPen SUBCUT SCH (18:58)
[2020-02-20] MEDS: Sodium Chloride 0.9% 1,000 ML IV SCH ×2 (19:19→23:19)
[2020-02-20] MEDS ORDERED: JANTOVEN 5 MG PO SCH ×3 (20:00→22:43)
[2020-02-20] MEDS ORDERED: cefTRIAXone 2 GM Vial IVPUSH SCH (20:00)
[2020-02-20] MEDS: Metoprolol Tartrate 25 MG Tab PO SCH (20:05)
[2020-02-20] MEDS ORDERED: ATORVASTATIN 20 MG PO SCH (21:00)
[2020-02-20] MEDS ORDERED: Insulin Glargine,Human Rec. Analog 100 Units/ML 3 ML Pen SUBCUT SCH (21:00)
[2020-02-20] MEDS ORDERED: ROPINIROLE 1 MG PO SCH (21:00)
[2020-02-20] MEDS ORDERED: Sodium Chloride 0.9% 10 ML SDV IV STA (21:52)
[2020-02-21] MEDS ORDERED: Levothyroxine 75 MCG Tab PO SCH (06:00)
[2020-02-21] MEDS ORDERED: Levothyroxine 100 MCG Tab PO SCH (06:10)
[2020-02-21] MEDS ORDERED: GLIPIZIDE 10 MG PO SCH (07:30)
[2020-02-21] MEDS ORDERED: metFORMIN 1,000 MG Tab *PTOM PO SCH (08:00)
[2020-02-21] MEDS: Insulin Lispro 100 Unit/ML 3 ML KwikPen SUBCUT SCH ×2 (08:14→11:40)
[2020-02-21] MEDS: Metoprolol Tartrate 25 MG Tab PO SCH (08:30)
[2020-02-21] MEDS ORDERED: FLUoxetine 20 MG Cap *PTOM PO SCH (09:00)
[2020-02-21] MEDS ORDERED: Levothyroxine 150 MCG Tab PO SCH (09:00)
--- NOTE | 2020-02-21 11:20 | PCM.DCSUM1 ---
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 He felt dizzy and his heart rate was high. He denies shortness of breath, chest pain. He fell last week, tripped over some things on the floor of his shop. Some abrasions from this. He denies any fevers, sinus symptoms, cough, abdominal pain. He had diarrhea this morning. No constipation, dysuria or frequency. Denies night sweats but has been more fatigued lately. He has a h/o HTN, Afib, Hypothyroidism, asbestosis, and DM2, on insulin. 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 Unsure if his pneumococcal vaccination is up to date. Diagnosis: Stroke: No - Discharge Data Discharge Date: 02/21/20 Discharge Disposition: DC/Tfer to Acute Hospital 02 Condition: Critical - Referral to Home Health Primary Care Physician: Ervin Dixon MD - Discharge Diagnosis/Problem(s) (1) Paroxysmal atrial fibrillation SNOMED Code(s): 311907207 ICD Code: I48.0 - PAROXYSMAL ATRIAL FIBRILLATION Status: Acute Current Visit: Yes Problem Details: with rapid ventricular rate (2) NSTEMI (non-ST elevated myocardial infarction) SNOMED Code(s): 19868724 ICD Code: I21.4 - NON-ST ELEVATION (NSTEMI) MYOCARDIAL INFARCTION Status: Acute Current Visit: Yes (3) Leukocytosis SNOMED Code(s): 625669569, 713657207 ICD Code: D72.829 - ELEVATED WHITE BLOOD CELL COUNT, UNSPECIFIED Status: Acute Current Visit: Yes Problem Details: 17% blasts (4) Hypothyroidism SNOMED Code(s): 10933824 ICD Code: E03.9 - HYPOTHYROIDISM, UNSPECIFIED Status: Chronic Current Visit: Yes (5) HLD (hyperlipidemia) SNOMED Code(s): 93163743 ICD Code: E78.5 - HYPERLIPIDEMIA, UNSPECIFIED Status: Acute Current Visit : No (6) Diabetes type 2, controlled SNOMED Code(s): 29948557, 203957378 ICD Code: E11.9 - TYPE 2 DIABETES MELLITUS WITHOUT COMPLICATIONS Status: Chronic Current Visit: Yes Qualifiers: Diabetes mellitus intermodal owner operator truck driver insulin use: with intermodal owner operator truck driver use (7) HTN (hypertension) SNOMED Code(s): 08732507 ICD Code: I10 - ESSENTIAL (PRIMARY) HYPERTENSION Status: Acute Current Visit: No - Patient Summary/Data Hospital Course: Mikey admitted for ICU observation for Atrial fibrillation with RVR, Leukocytosis yesterday evening. He had Diltiazem bolus in ER which dropped his pressures but did not slow his heart rate, also received Digoxin in ER with minimal response, brought his heart rate to 130. Once he reached the floor, Metoprolol 5 mg IV given x 2, had response to this and started on Metoprolol 12.5 mg bid last night. Heart rate this morning before medication 110-140s, after medication came down to 90s. Troponin in ER was normal at 9.7, repeated this morning had jumped to 105.9. EKG show atrial fibrillation. His lactic acid was 2.4 on admission, started Rocephin, did not do Azithromycin as his QTc was prolonged. TSH was 17, increased Levothyroxine 175 mcg daily. INR was 2.0, so was not started on Heparin. Takes his Warfarin at bedtime, last dose 5.11. Lactic acid this morning was 2.0. WBC were 59 with 17% blasts on manual differential. Peripheral smear was done this morning. WBC down to 39 this morning, concern for CLL. COVID negative. Spoke with Dr Rahman at [facility] , will take patient in transfer, requiring higher level of care: cardiology, heme/oncology. - Patient Instructions Diet: Diabetic Diet Other/Special Instructions: Transfer to [facility] for cardiology & heme/oncology - Discharge Plan *PRESCRIPTION DRUG MONITORING PROGRAM REVIEWED*: Not Applicable *COPY OF PRESCRIPTION DRUG MONITORING REPORT IN PATIENT PEPE: Not Applicable Home Medications: Home Meds Aspirin [Adult Low Dose Aspirin EC] 81 mg PO DAILY 02/22/15 [History] FLUoxetine HCl [Prozac] 20 mg PO DAILY 02/22/15 [History] Insulin Detemir [Levemir] 60 unit SQ BEDTIME 02/22/15 [History] Levothyroxine 150 mcg PO DAILY 02/22/15 [History] metFORMIN [Glucophage] 1,000 mg PO BIDMEALS 02/22/15 [History] Nitroglycerin [Nitrostat] 0.4 mg SL ASDIRECTED PRN 05/02/16 [History] Warfarin Sodium [Jantoven] 5 mg PO SUTUWETHSA 05/02/16 [History] atorvaSTATin [Lipitor] 20 mg PO BEDTIME 05/02/16 [History] Lisinopril/Hydrochlorothiazide [Lisinopril-Hctz 20-25 mg Tab] 1 each PO DAILY [History] Warfarin [Coumadin] 7.5 mg PO MOFR 02/05/18 [History] glipiZIDE [Glucotrol] 10 mg PO ACBREAKFAST 02/05/18 [History] rOPINIRole [Requip] 2 mg PO BEDTIME 02/05/18 [History] Levothyroxine 175 mcg PO DAILY@0600 tablet 02/21/20 [Rx] Metoprolol Tartrate [Lopressor] 12.5 mg PO Q12H tablet 02/21/20 [Rx] Oxygen Therapy Mode: Room Air Patient Handouts: Type 2 Diabetes Mellitus, Diagnosis, Adult, Hypothyroidism, Fall Prevention in Hospitals, Adult, Atrial Fibrillation, [id number], Venous Thromboembolism Prevention Forms: ED Department Discharge Referrals: Ervin Dixon MD [Primary Care Provider] - - Discharge Summary/Plan Comment DC Time >30 min.: Yes - General Info Date of Service: 02/21/20 Admission Dx/Problem (Free Text: Mikey states he felt like something was sitting on his chest this morning about 1-2 am, did not tell the nurses, states its gone now. No fevers or chills. Productive cough. No nausea or vomiting. He has had decreased exercise tolerance. - Patient Data Vitals - Most Recent: Last Vital Signs Temp 97.8 F 02/21/20 08:00 Pulse 110 H 02/21/20 08:30 Resp 18 02/21/20 08:00 BP 105/79 02/21/20 08:30 Pulse Ox 97 02/21/20 08:00 Weight - Most Recent: 236 lb 8 oz I&O - Last 24 hours: Intake & Output 02/20/20 02/21/20 02/21/20 22:59 06:59 14:59 Intake Total 1947 1096 Output Total 300 750 Balance 1647 346 Lab Results - Last 24 hrs: Laboratory Results - last 24 hr 02/20/20 02/20/20 02/20/20 Range/Units 16:22 16:22 16:22 WBC 52.8 H* (4.5-12.0) X10-3/uL RBC 4.53 (4.30-5.75) x10(6)uL Hgb 13.2 L (13.5-17.8) g/dL Hct 39.3 (30.0-51.3) % MCV 86.8 (80-96) fL MCH 29.2 (27.7-33.6) pg MCHC 33.6 (32.2-35.4) g/dL RDW 14.4 (11.5-15.5) % Plt Count 421 H (125-369) X10(3)uL MPV 8.2 (7.4-10.4) fL Add Manual Diff Yes PT 20.7 H (9.0-11.1) sec INR 2.01 H (1.00-1.24) Sodium 133 L (135-145) mmol/L Potassium 3.8 (3.5-5.3) mmol/L Chloride 97 L (100-110) mmol/L Carbon Dioxide 28 (21-32) mmol/L BUN 18 (7-18) mg/dL Creatinine 1.3 (0.70-1.30) mg/dL Est Cr Clr Drug Dosing TNP Estimated GFR (MDRD) 54 L (>60) BUN/Creatinine Ratio 13.8 (9-20) Glucose 151 H (80-116) mg/dL POC Glucose (80-116) mg/dL Hemoglobin A1c (<5.7) % Lactic Acid (0.4-2.0) mmol/L Calcium 9.2 (8.6-10.2) mg/dL Troponin I (4.0-60.3) pg/mL NT-Pro-B Natriuret Pep (<=450) pg/mL TSH, Ultra Sensitive (0.36-3.74) IU/mL Urine Color (YELLOW) Urine Appearance (CLEAR) Urine pH (5.0-6.5) Ur Specific Shannon (1.010-1.025) Urine Protein (NEGATIVE) mg/dL Urine Glucose (UA) (NORMAL) mg/dL Urine Ketones (NEGATIVE) mg/dL Urine Occult Blood (NEGATIVE) Urine Nitrite (NEGATIVE) Urine Bilirubin (NEGATIVE) Urine Urobilinogen (NEGATIVE) mg/dL Ur Leukocyte Esterase (NEGATIVE) Urine RBC (0-5) Urine WBC (0-5) Ur Squamous Epith Cells (NS,R,O) Urine Bacteria (NS) SARS Virus RNA (PCR) (NEGATIVE) 02/20/20 02/20/20 02/20/20 Range/Units 16:22 16:22 16:22 WBC (4.5-12.0) X10-3/uL RBC (4.30-5.75) x10(6)uL Hgb (13.5-17.8) g/dL Hct (30.0-51.3) % MCV (80-96) fL MCH (27.7-33.6) pg MCHC (32.2-35.4) g/dL RDW (11.5-15.5) % Plt Count (125-369) X10(3)uL MPV (7.4-10.4) fL Add Manual Diff PT (9.0-11.1) sec INR (1.00-1.24) Sodium (135-145) mmol/L Potassium (3.5-5.3) mmol/L Chloride (100-110) mmol/L Carbon Dioxide (21-32) mmol/L BUN (7-18) mg/dL Creatinine (0.70-1.30) mg/dL Est Cr Clr Drug Dosing Estimated GFR (MDRD) (>60) BUN/Creatinine Ratio (9-20) Glucose (80-116) mg/dL POC Glucose (80-116) mg/dL Hemoglobin A1c 8.4 H (<5.7) % Lactic Acid (0.4-2.0) mmol/L Calcium (8.6-10.2) mg/dL Troponin I 9.7 (4.0-60.3) pg/mL NT-Pro-B Natriuret Pep 260 (<=450) pg/mL TSH, Ultra Sensitive 17.16 H* (0.36-3.74) IU/mL Urine Color (YELLOW) Urine Appearance (CLEAR) Urine pH (5.0-6.5) Ur Specific Shannon (1.010-1.025) Urine Protein (NEGATIVE) mg/dL Urine Glucose (UA) (NORMAL) mg/dL Urine Ketones (NEGATIVE) mg/dL Urine Occult Blood (NEGATIVE) Urine Nitrite (NEGATIVE) Urine Bilirubin (NEGATIVE) Urine Urobilinogen (NEGATIVE) mg/dL Ur Leukocyte Esterase (NEGATIVE) Urine RBC (0-5) Urine WBC (0-5) Ur Squamous Epith Cells (NS,R,O) Urine Bacteria (NS) SARS Virus RNA (PCR) (NEGATIVE) 02/20/20 02/20/20 02/20/20 Range/Units 18:31 18:45 18:45 WBC (4.5-12.0) X10-3/uL RBC (4.30-5.75) x10(6)uL Hgb (13.5-17.8) g/dL Hct (30.0-51.3) % MCV (80-96) fL MCH (27.7-33.6) pg MCHC (32.2-35.4) g/dL RDW (11.5-15.5) % Plt Count (125-369) X10(3)uL MPV (7.4-10.4) fL Add Manual Diff PT (9.0-11.1) sec INR (1.00-1.24) Sodium (135-145) mmol/L Potassium (3.5-5.3) mmol/L Chloride (100-110) mmol/L Carbon Dioxide (21-32) mmol/L BUN (7-18) mg/dL Creatinine (0.70-1.30) mg/dL Est Cr Clr Drug Dosing Estimated GFR (MDRD) (>60) BUN/Creatinine Ratio (9-20) Glucose (80-116) mg/dL POC Glucose 91 (80-116) mg/dL Hemoglobin A1c (<5.7) % Lactic Acid 2.3 H* (0.4-2.0) mmol/L Calcium (8.6-10.2) mg/dL Troponin I (4.0-60.3) pg/mL NT-Pro-B Natriuret Pep (<=450) pg/mL TSH, Ultra Sensitive (0.36-3.74) IU/mL Urine Color Yellow (YELLOW) Urine Appearance Clear (CLEAR) Urine pH 7.0 H (5.0-6.5) Ur Specific Shannon 1.000 L (1.010-1.025) Urine Protein Negative (NEGATIVE) mg/dL Urine Glucose (UA) 100 H (NORMAL) mg/dL Urine Ketones Negative (NEGATIVE) mg/dL Urine Occult Blood Negative (NEGATIVE) Urine Nitrite Negative (NEGATIVE) Urine Bilirubin Negative (NEGATIVE) Urine Urobilinogen Normal (NEGATIVE) mg/dL Ur Leukocyte Esterase Negative (NEGATIVE) Urine RBC 0-5 (0-5) Urine WBC 0-5 (0-5) Ur Squamous Epith Cells Occasional (NS,R,O) Urine Bacteria Few H (NS) SARS Virus RNA (PCR) (NEGATIVE) 02/20/20 02/21/20 02/21/20 Range/Units 21:25 06:00 06:00 WBC 39.5 H* (4.5-12.0) X10-3/uL RBC 4.05 L (4.30-5.75) x10(6)uL Hgb 11.6 L (13.5-17.8) g/dL Hct 34.9 (30.0-51.3) % MCV 86.3 (80-96) fL MCH 28.6 (27.7-33.6) pg MCHC 33.2 (32.2-35.4) g/dL RDW 14.7 (11.5-15.5) % Plt Count 348 (125-369) X10(3)uL MPV (7.4-10.4) fL Add Manual Diff PT (9.0-11.1) sec INR (1.00-1.24) Sodium 139 (135-145) mmol/L Potassium 3.6 (3.5-5.3) mmol/L Chloride 104 D (100-110) mmol/L Carbon Dioxide 28 (21-32) mmol/L BUN 17 (7-18) mg/dL Creatinine 1.2 (0.70-1.30) mg/dL Est Cr Clr Drug Dosing 61.84 Estimated GFR (MDRD) 59 L (>60) BUN/Creatinine Ratio 14.2 (9-20) Glucose 101 (80-116) mg/dL POC Glucose 149 H (80-116) mg/dL Hemoglobin A1c (<5.7) % Lactic Acid (0.4-2.0) mmol/L Calcium 8.1 L (8.6-10.2) mg/dL Troponin I (4.0-60.3) pg/mL NT-Pro-B Natriuret Pep (<=450) pg/mL TSH, Ultra Sensitive (0.36-3.74) IU/mL Urine Color (YELLOW) Urine Appearance (CLEAR) Urine pH (5.0-6.5) Ur Specific Shannon (1.010-1.025) Urine Protein (NEGATIVE) mg/dL Urine Glucose (UA) (NORMAL) mg/dL Urine Ketones (NEGATIVE) mg/dL Urine Occult Blood (NEGATIVE) Urine Nitrite (NEGATIVE) Urine Bilirubin (NEGATIVE) Urine Urobilinogen (NEGATIVE) mg/dL Ur Leukocyte Esterase (NEGATIVE) Urine RBC (0-5) Urine WBC (0-5) Ur Squamous Epith Cells (NS,R,O) Urine Bacteria (NS) SARS Virus RNA (PCR) (NEGATIVE) 02/21/20 02/21/20 02/21/20 Range/Units 06:00 06:00 08:00 WBC (4.5-12.0) X10-3/uL RBC (4.30-5.75) x10(6)uL Hgb (13.5-17.8) g/dL Hct (30.0-51.3) % MCV (80-96) fL MCH (27.7-33.6) pg MCHC (32.2-35.4) g/dL RDW (11.5-15.5) % Plt Count (125-369) X10(3)uL MPV (7.4-10.4) fL Add Manual Diff PT 21.1 H (9.0-11.1) sec INR 2.04 H (1.00-1.24) Sodium (135-145) mmol/L Potassium (3.5-5.3) mmol/L Chloride (100-110) mmol/L Carbon Dioxide (21-32) mmol/L BUN (7-18) mg/dL Creatinine (0.70-1.30) mg/dL Est Cr Clr Drug Dosing Estimated GFR (MDRD) (>60) BUN/Creatinine Ratio (9-20) Glucose (80-116) mg/dL POC Glucose (80-116) mg/dL Hemoglobin A1c (<5.7) % Lactic Acid 2.0 (0.4-2.0) mmol/L Calcium (8.6-10.2) mg/dL Troponin I 105.9 H* (4.0-60.3) pg/mL NT-Pro-B Natriuret Pep (<=450) pg/mL TSH, Ultra Sensitive (0.36-3.74) IU/mL Urine Color (YELLOW) Urine Appearance (CLEAR) Urine pH (5.0-6.5) Ur Specific Shannon (1.010-1.025) Urine Protein (NEGATIVE) mg/dL Urine Glucose (UA) (NORMAL) mg/dL Urine Ketones (NEGATIVE) mg/dL Urine Occult Blood (NEGATIVE) Urine Nitrite (NEGATIVE) Urine Bilirubin (NEGATIVE) Urine Urobilinogen (NEGATIVE) mg/dL Ur Leukocyte Esterase (NEGATIVE) Urine RBC (0-5) Urine WBC (0-5) Ur Squamous Epith Cells (NS,R,O) Urine Bacteria (NS) SARS Virus RNA (PCR) (NEGATIVE) 02/21/20 Range/Units 09:45 WBC (4.5-12.0) X10-3/uL RBC (4.30-5.75) x10(6)uL Hgb (13.5-17.8) g/dL Hct (30.0-51.3) % MCV (80-96) fL MCH (27.7-33.6) pg MCHC (32.2-35.4) g/dL RDW (11.5-15.5) % Plt Count (125-369) X10(3)uL MPV (7.4-10.4) fL Add Manual Diff PT (9.0-11.1) sec INR (1.00-1.24) Sodium (135-145) mmol/L Potassium (3.5-5.3) mmol/L Chloride (100-110) mmol/L Carbon Dioxide (21-32) mmol/L BUN (7-18) mg/dL Creatinine (0.70-1.30) mg/dL Est Cr Clr Drug Dosing Estimated GFR (MDRD) (>60) BUN/Creatinine Ratio (9-20) Glucose (80-116) mg/dL POC Glucose (80-116) mg/dL Hemoglobin A1c (<5.7) % Lactic Acid (0.4-2.0) mmol/L Calcium (8.6-10.2) mg/dL Troponin I (4.0-60.3) pg/mL NT-Pro-B Natriuret Pep (<=450) pg/mL TSH, Ultra Sensitive (0.36-3.74) IU/mL Urine Color (YELLOW) Urine Appearance (CLEAR) Urine pH (5.0-6.5) Ur Specific Shannon (1.010-1.025) Urine Protein (NEGATIVE) mg/dL Urine Glucose (UA) (NORMAL) mg/dL Urine Ketones (NEGATIVE) mg/dL Urine Occult Blood (NEGATIVE) Urine Nitrite (NEGATIVE) Urine Bilirubin (NEGATIVE) Urine Urobilinogen (NEGATIVE) mg/dL Ur Leukocyte Esterase (NEGATIVE) Urine RBC (0-5) Urine WBC (0-5) Ur Squamous Epith Cells (NS,R,O) Urine Bacteria (NS) SARS Virus RNA (PCR) Negative (NEGATIVE) Med Orders - Current: Current Medications Atorvastatin Calcium (Lipitor) 20 mg PO BEDTIME [facility] Last Admin: 02/20/20 22:59 Dose: 20 mg Ceftriaxone Sodium (Rocephin) 2 gm IVPUSH Q24H [facility] Last Admin: 02/20/20 20:03 Dose: 2 gm Fluoxetine HCl (Prozac) 20 mg PO DAILY [facility] Last Admin: 02/21/20 09:03 Dose: 20 mg Glipizide (Glucotrol) 10 mg PO ACBREAKFAST [facility] Last Admin: 02/21/20 08:33 Dose: 10 mg Sodium Chloride (Normal Saline) 1,000 mls @ 125 mls/hr IV ASDIRECTED [facility] Last Admin: 02/20/20 23:19 Dose: 100 mls/hr Insulin Glargine (Lantus Solostar) 60 units SUBCUT BEDTIME [facility] Last Admin: 02/20/20 22:01 Dose: 60 unit Insulin Human Lispro (Humalog) 0 unit SUBCUT TIDMEALS [facility]; Protocol Last Admin: 02/21/20 08:14 Dose: Not Given Levothyroxine Sodium (Levothyroxine) 175 mcg PO DAILY@0600 [facility] Metformin HCl (Glucophage) 1,000 mg PO BIDMEALS [facility] Last Admin: 02/21/20 08:32 Dose: 1,000 mg Metoprolol Tartrate (Lopressor) 12.5 mg PO Q12H [facility] Last Admin: 02/21/20 08:30 Dose: 12.5 mg Nitroglycerin (Nitrostat) 0.4 mg SL ASDIRECTED PRN PRN Reason: Chest Pain Jantoven 5mg Tabs (Pt Own) 1 each PO SUTUWETHSA [facility] Last Admin: 02/20/20 23:01 Dose: Not Given Jantoven 5mg Pt (Own) 1.5 each PO MOFR [facility] Last Admin: 02/20/20 23:00 Dose: 1.5 each Ropinirole HCl (Requip) 2 mg PO BEDTIME [facility] Last Admin: 02/20/20 23:00 Dose: 2 mg Sodium Chloride (Saline Flush) 10 ml FLUSH ASDIRECTED PRN PRN Reason: Keep Vein Open Last Admin: 02/20/20 18:27 Dose: 10 ml Discontinued Medications Digoxin (Lanoxin) 250 mcg IVPUSH ONETIME ONE Stop: 02/20/20 17:19 Last Admin: 02/20/20 17:32 Dose: 250 mcg Diltiazem HCl (Diltiazem) 20 mg IVPUSH ONETIME ONE Stop: 02/20/20 16:30 Last Admin: 02/20/20 18:24 Dose: Not Given Diltiazem HCl (Diltiazem) 10 mg IVPUSH ONETIME ONE Stop: 02/20/20 16:36 Last Admin: 02/20/20 16:28 Dose: 10 mg Diltiazem HCl 125 mg/ Sodium (Chloride) 125 mls @ 5 mls/hr IV TITRATE [facility]; Protocol Metoprolol Tartrate 5 mg/ (Sodium Chloride) 55 mls @ 100 mls/hr IV ONETIME ONE Stop: 02/20/20 18:27 Last Admin: 02/20/20 18:26 Dose: Not Given Sodium Chloride (Normal Saline) 500 mls @ 500 mls/hr IV .BOLUS ONE Stop: 02/20/20 19:26 Last Admin: 02/20/20 21:59 Dose: 500 mls/hr Sodium Chloride (Normal Saline) 500 mls @ 1,000 mls/hr IV ONETIME ONE Stop: 02/20/20 19:05 Last Admin: 02/20/20 18:36 Dose: 1,000 mls/hr Levothyroxine Sodium (Levothyroxine) 150 mcg PO DAILY [facility] Levothyroxine Sodium (Levothyroxine) 175 mcg PO DAILY@0600 [facility] Levothyroxine Sodium (Synthroid) 100 mcg PO DAILY@0600 [facility] Last Admin: 02/21/20 06:30 Dose: 100 mcg Levothyroxine Sodium (Levothyroxine) 75 mcg PO DAILY@0600 [facility] Last Admin: 02/21/20 06:29 Dose: 75 mcg Metoprolol Tartrate (Lopressor) 5 mg IVPUSH ONETIME ONE Stop: 02/20/20 18:16 Last Admin: 02/20/20 18:08 Dose: 5 mg Metoprolol Tartrate (Lopressor) 5 mg IVPUSH ONETIME ONE Stop: 02/20/20 18:27 Last Admin: 02/20/20 18:35 Dose: 5 mg Jantoven 5mg Pt (Own) 7.5 each PO MOFR [facility] Sodium Chloride (Normal Saline) 500 ml IV NOW STA Stop: 02/20/20 21:53 Last Admin: 02/20/20 22:48 Dose: Not Given Warfarin Sodium (Coumadin) 7.5 mg PO MOFR [facility] Warfarin Sodium (Coumadin) 5 mg PO SUTUWETHSA [facility] - Exam General: Reports: Alert, Oriented, Cooperative, No Acute Distress Lungs: Reports: Clear to Auscultation, Normal Respiratory Effort, Decreased Breath Sounds (bibasilar). Denies: Wheezing Cardiovascular: Reports: Tachycardia GI/Abdominal Exam: Normal Bowel Sounds, Soft, Non-Tender, No Distention Extremities: No Pedal Edema Skin: Reports: Warm, Dry, Other (abrasions to bilateral lower legs)
[2020-02-21] MEDS ORDERED: Warfarin 5 MG Tab PO SCH (12:00)
[2020-02-21 12:32] VITALS: PULSE 120
[2020-02-21 12:33] VITALS: BP 126/86
[2020-02-24] MEDS ORDERED: Warfarin 5 MG Tab PO SCH (12:00)
[2020-02-24 17:12] LABS: ORGANISM ID Not indicated. (.); SPECIMEN SOURCE Urine (.); STREPTOCOCCUS PNEUMONIAE AG Negative (Negative)
== END 2020-02-21 12:52 ==
LOC: FB.ED 15:55 → FB.ICU 17:18
PROVIDERS: ADMIT Family Medicine; ATTEND Family Medicine
DX: I48.0 Paroxysmal atrial fibrillation (principal); Z11.59 Encounter for screening for other viral diseases; I21.4 Non-ST elevation (NSTEMI) myocardial infarction; E03.9 Hypothyroidism, unspecified; E78.5 Hyperlipidemia, unspecified; E11.9 Type 2 diabetes mellitus without complications; J44.9 Chronic obstructive pulmonary disease, unspecified; D72.89 Other specified disorders of white blood cells; I25.10 Atherosclerotic heart disease of native coronary artery without angina pectoris; I10 Essential (primary) hypertension; Z79.82 Long term (current) use of aspirin; Z79.899 Other long term (current) drug therapy; Z91.040 Latex allergy status; Z79.4 Long term (current) use of insulin; Z79.01 Long term (current) use of anticoagulants; Z79.84 Long term (current) use of oral hypoglycemic drugs
CPT/HCPCS: 36415; 71045; 80048; 81001; 82962; 83036; 83605; 83880; 84443; 84484; 85025; 85027; 85610; 87449; 87899; 88104; 93005; 96361; 96374; 96375; 96376; 99285; A9270; G0378; J0696; J1160; J1815; J3490; J7030; J7040; U0002

== ENCOUNTER 2020-09-20 15:16 | Emergency (ER) | payer MEDICARE ==
--- NOTE | 2020-09-20 16:13 | EDM.PDOC ---
ED HPI GENERAL MEDICAL PROBLEM - General Stated Complaint: DIZZYNESS, HEADACHE AND CONFUSED Time Seen by Provider: 09/20/20 16:00 Source of Information: Reports: Patient History Limitations: Reports: No Limitations - History of Present Illness INITIAL COMMENTS - FREE TEXT/NARRATIVE: pt has Hx of non Hodgkin lymphoma diagnosed this past february , followed by chemotherapy and now he is on maintenance , presenting today with c/o intermittent confusion, mild frontal headache , double vision at times and dizzy spells , that seems to have been worsening over the past week , pt report nausea and intermittent emesis that has been going on since chemo , pt denies neck pain or stiffness, denies fever or chills, any other neuro sx or any other associated sx or concerns. - Related Data Allergies Allergy/AdvReac Type Severity Reaction Status Date / Time latex Allergy Burning Verified 05/05/16 09:01 Home Meds: Home Meds Aspirin [Adult Low Dose Aspirin EC] 81 mg PO DAILY 02/22/15 [History] FLUoxetine HCl [Prozac] 20 mg PO DAILY 02/22/15 [History] Insulin Detemir [Levemir] 60 unit SQ BEDTIME 02/22/15 [History] Levothyroxine 150 mcg PO DAILY 02/22/15 [History] metFORMIN [Glucophage] 1,000 mg PO BIDMEALS 02/22/15 [History] Nitroglycerin [Nitrostat] 0.4 mg SL ASDIRECTED PRN 05/02/16 [History] Warfarin Sodium [Jantoven] 5 mg PO SUTUWETHSA 05/02/16 [History] atorvaSTATin [Lipitor] 20 mg PO BEDTIME 05/02/16 [History] Lisinopril/Hydrochlorothiazide [Lisinopril-Hctz 20-25 mg Tab] 1 each PO DAILY 02/05/18 [History] Warfarin [Coumadin] 7.5 mg PO MOFR 02/05/18 [History] glipiZIDE [Glucotrol] 10 mg PO ACBREAKFAST 02/05/18 [History] rOPINIRole [Requip] 2 mg PO BEDTIME 02/05/18 [History] Levothyroxine 175 mcg PO DAILY@0600 tablet 02/21/20 [Rx] Metoprolol Tartrate [Lopressor] 12.5 mg PO Q12H tablet 02/21/20 [Rx] Past Medical History HEENT History: Reports: Cataract, Other (See Below) Other HEENT History: right eye Cardiovascular History: Reports: Afib, CAD, High Cholesterol, Hypertension Respiratory History: Reports: COPD, Other (See Below) Other Respiratory History: ASBESTIOSIS Other Musculoskeletal History: CARPAL TUNNEL SYNDROME Neurological History: Reports: Other (See Below) Other Neuro History: dizzy spells at times. Psychiatric History: Reports: None Endocrine/Metabolic History: Reports: Diabetes, Type II, Hypothyroidism Other Endocrine/Metabolic History: Thyroid surgery Oncologic (Cancer) History: Reports: Thyroid Other Oncologic History: BENIGN PANCREATIC TUMOR - Infectious Disease History Infectious Disease History: Reports: Chicken Pox, Measles, Mumps, Shingles - Past Surgical History HEENT Surgical History: Reports: Other (See Below) Other HEENT Surgeries/Procedures: Moccasin teeth GI Surgical History: Reports: Colonoscopy Musculoskeletal Surgical History: Reports: None Social & Family History - Family History Family Medical History: No Pertinent Family History - Caffeine Use Caffeine Use: Reports: Coffee, Soda Other Caffeine Use: Coffee 4 cups. soda-6 pack ED ROS GENERAL - Review of Systems Review Of Systems: See Below Constitutional: Reports: No Symptoms HEENT: Reports: Other (double vision ). Denies: Eye Discharge, Eye Pain, Hearing Loss Respiratory: Reports: No Symptoms Cardiovascular: Reports: No Symptoms GI/Abdominal: Reports: Anorexia, Nausea. Denies: Constipation, Diarrhea : Reports: No Symptoms Musculoskeletal: Reports: No Symptoms Skin: Reports: No Symptoms Neurological: Reports: Confusion. Denies: Numbness, Paresthesia, Seizure, Syncope, Tremors, Trouble Speaking, Change in Speech Psychiatric: Reports: No Symptoms ED EXAM, GENERAL - Physical Exam Exam: See Below Exam Limited By: No Limitations General Appearance: Alert, No Apparent Distress. No: Anxious, Obtunded Eye Exam: Bilateral Eye: PERRL, Vision Changes Ears: Normal External Exam, Normal TMs Nose: Normal Inspection Throat/Mouth: Normal Inspection, Normal Oropharynx Head: Atraumatic, Normocephalic Neck: Normal Inspection, Supple, Non-Tender, Full Range of Motion Respiratory/Chest: No Respiratory Distress, Lungs Clear, Normal Breath Sounds Cardiovascular: Normal Peripheral Pulses, Regular Rate, Rhythm GI/Abdominal: Normal Bowel Sounds, Soft, Non-Tender Back Exam: Normal Inspection, Full Range of Motion Extremities: Normal Inspection, Normal Range of Motion Neurological: Alert, Oriented, CN II-XII Intact, No Motor/Sensory Deficits Psychiatric: Normal Affect Skin Exam: Warm Course - Vital Signs Text/Narrative:: labs results were unremarkable, showing Na slightly low at 132, and hg at 11.7 , rest of electrolytes are wnl, head CT shows no acute findings. pt experienced nausea here and was given zofran. pt symptoms are non-specific / potentially related to maintance therapy and underlying malignancy, there no acute findings today and pt is medically stable to follow on this issue with his PCP and oncologist. - Orders/Labs/Meds Orders: Active Orders 24 hr Category Date Time Status Head wo Cont [CT] Stat Exams 09/20/20 17:37 Taken UA W/MICROSCOPIC [URIN] Stat Lab 09/20/20 16:47 Ordered Labs: Laboratory Tests 09/20/20 09/20/20 Range/Units 17:05 17:05 WBC 7.9 (3.2-10.1) x10-3/uL RBC 3.81 L (3.90-5.90) x10(6)uL Hgb 11.7 L (12.9-17.7) g/dL Hct 35.9 L (38.3-50.1) % MCV 94.3 (80.8-98.7) fL MCH 30.6 (27.0-33.3) pg MCHC 32.5 (28.7-35.3) g/dL RDW 15.8 H (12.4-15.0) % Plt Count 549 H (117-477) x10(3)uL MPV 7.7 (6.7-11.0) fL Neut % (Auto) 87.6 H (40.3-71.8) % Lymph % (Auto) 3.3 L (15.8-45.3) % [place] % (Auto) 8.5 (5.5-15.2) % Eos % (Auto) 0.6 (0.1-6.8) % Baso % (Auto) 0.0 L (0.3-3.8) % Neut # (Auto) 6.9 (1.7-6.9) x10-3/uL Lymph # (Auto) 0.3 L (0.5-4.5) x10-3/uL [place] # (Auto) 0.7 (0.0-1.2) x10-3/uL Eos # (Auto) 0.1 (0.0-0.6) x10-3/uL Baso # (Auto) 0.0 (0.0-0.3) x10-3/uL Sodium 132 L (135-145) mmol/L Potassium 4.0 (3.5-5.3) mmol/L Chloride 94 L D (100-110) mmol/L Carbon Dioxide 31 (21-32) mmol/L BUN 14 (7-18) mg/dL Creatinine 1.0 (0.70-1.30) mg/dL Est Cr Clr Drug Dosing TNP Estimated GFR (MDRD) > 60 (>60) BUN/Creatinine Ratio 14.0 (9-20) Glucose 151 H (80-116) mg/dL Calcium 9.2 (8.6-10.2) mg/dL Total Bilirubin 0.4 (0.1-1.3) mg/dL AST 13 D (5-25) IU/L ALT 17 D (12-36) U/L Alkaline Phosphatase 68 (56-112) IU/L Total Protein 7.4 (6.0-8.0) g/dL Albumin 3.7 (3.2-4.6) g/dL Globulin 3.7 g/dL Albumin/Globulin Ratio 1.0 Meds: Medications Discontinued Medications Generic Name Dose Route Start Last Admin Trade Name Freq PRN Reason Stop Dose Admin Ondansetron HCl 4 mg 09/20/20 16:48 09/20/20 16:58 Zofran Odt PO 09/20/20 16:49 4 mg ONETIME ONE Administration Departure - Departure Time of Disposition: 18:07 Disposition: Home, Self-Care 01 Clinical Impression: Dizziness - Discharge Information Referrals: Ervin Dixon MD [Primary Care Provider] - - My Orders Last 24 Hours: My Active Orders 09/20/20 16:47 UA W/MICROSCOPIC [URIN] Stat 09/20/20 17:37 Head wo Cont [CT] Stat - Assessment/Plan Last 24 Hours: My Active Orders 09/20/20 16:47 UA W/MICROSCOPIC [URIN] Stat 09/20/20 17:37 Head wo Cont [CT] Stat
[2020-09-20] MEDS ORDERED: Ondansetron 4 MG Tab.DIS PO ONE (16:48)
[2020-09-20 19:34] VITALS: BP 148/82; PULSE 58
--- NOTE | 2020-09-20 21:14 | CT ---
INDICATION: Dizziness. Confused. Unbalanced. CT HEAD WITHOUT CONTRAST: Spiral 3.75 mm axial sections were obtained through the brain without contrast with sagittal, coronal, and axial reconstructions 09/20/20 and compared with MRI dated 03/19/16. Total exam DLP was 1348.07 mGy-cm. Degenerative changes of moderate degree are noted at the odontoatlantian joint with narrowing of the joint space. Mastoid air cells are minimally aerated without definite evidence of mastoiditis. What appears to be a large retention cyst and thickening of the lining is noted at the right maxillary antrum. Paranasal sinuses otherwise appeared fairly well aerated. No cranial abnormality was identified. Calcifications are noted in the left vertebral and left internal carotid arteries. The orbits appear to be intact. No shift of midline structures or significant-appearing ventricular abnormalities were identified. There is suggestion of some minimal microvascular disease-type change in the white matter. No other abnormal areas of density were identified. No bleeding site or hematoma was seen. IMPRESSION: 1. No definite acute intracranial abnormalities identified. 2. Minimal microvascular disease with arterial calcifications on the left. If symptoms persist - if occult abnormality such as metastatic disease is suspected clinically, additional CT of the head with IV contrast, or possibly MRI, may be helpful for further evaluation. Report was called to Dr. Nicole at 1751 hours. [facility]
== END 2020-09-20 18:35 | disposition home or self-care (01) ==
LOC: FB.ED 15:16
DX: R42 Dizziness and giddiness (principal); R51.9 Headache, unspecified; R41.0 Disorientation, unspecified; R63.0 Anorexia; R11.0 Nausea; H53.2 Diplopia; I10 Essential (primary) hypertension; I25.10 Atherosclerotic heart disease of native coronary artery without angina pectoris; I48.91 Unspecified atrial fibrillation; E78.00 Pure hypercholesterolemia, unspecified; J44.9 Chronic obstructive pulmonary disease, unspecified; E11.9 Type 2 diabetes mellitus without complications; E03.9 Hypothyroidism, unspecified; Z91.040 Latex allergy status; Z79.82 Long term (current) use of aspirin; Z79.899 Other long term (current) drug therapy; Z79.4 Long term (current) use of insulin
CPT/HCPCS: 36415; 70450; 80053; 81001; 85025; 99285-25; A9270-GY